=== PATIENT | male | born 1985 | race Caucasian/White ===

== ENCOUNTER 2021-03-15 06:50 | Emergency (ER) | payer OTHER ==
[~2021-03-15] VITALS: Ht 182.9 cm; Wt 70.3 kg
[2021-03-15] MEDS ORDERED: CEPHALEXIN500 MG PO (07:27)
[2021-03-15 07:38] VITALS: BP 138/81
== END 2021-03-15 07:39 | disposition home or self-care (01) ==
LOC: ER 06:50
DX: M79.641 Pain in right hand (principal); F12.90 Cannabis use, unspecified, uncomplicated